=== PATIENT | male | born 1955 | race Caucasian/White ===

== ENCOUNTER 2020-09-15 01:05 | Outpatient (CLI) | payer OTHER, SELFPAY ==
[2020-09-15 19:22] LABS: SARS-CoV-2 RNA PCR Negative
== END 2020-09-15 01:06 | disposition home or self-care (01) ==
LOC: ANHCOVIDDT 01:05
PROVIDERS: Visit Provider Internal Medicine Gastroenterology
DX: Z01.812 Encounter for preprocedural laboratory examination (principal); Z20.822 Contact with and (suspected) exposure to COVID-19
CPT/HCPCS: C9803; U0003; U0005

== ENCOUNTER 2020-09-18 02:38 | Day surgery (SDC) | payer OTHER, SELFPAY ==
[2020-09-10 11:01] VITALS: BMI 25.9
[2020-09-18 09:45] VITALS: BP 113/66; PULSE 75; RESP 18; TEMP 36.9; O2SAT 98
[2020-09-18] MEDS: LACTATED RINGERS 1,000 ML 150 ML IV CONT (10:01)
--- NOTE | 2020-09-18 10:19 | P.PNAN_ITS ---
Anes - Initial Pre Proc Eval Procedure: Operation Date: 09/18/20 10:30 Proposed Procedures p Screening Colonoscopy - Marc Suarez MD Date/Time: 09/18/20 10:19 Surgeon: Marc Suarez MD Pre Op Diagnosis: Neoplasm Screening Patient Data Age: 65 Gender: M Height: 5 ft 10 in Weight: 78.3 kg Last Vital Signs Temp 98.4 F 09/18/20 09:45 Pulse 75 09/18/20 09:45 Resp 18 09/18/20 09:45 BP 113/66 09/18/20 09:45 Pulse Ox 98 09/18/20 09:45 Allergies Allergy/AdvReac Type Severity Reaction Status Date / Time ibuprofen Allergy Unknown Hives Verified 09/18/20 09:44 NSAIDS (Non-Steroidal Allergy Hives Verified 09/18/20 09:44 Anti-Inflamma latex AdvReac Itching Verified 09/18/20 09:44 Home Medications Medication Instructions Recorded Confirmed Type Zn-pyg cntl-uoxuyf-hak palmet [Saw 1 cap PO BID 09/10/20 09/10/20 History [place] Complex] aspirin [Aspir-81] 81 mg PO DAILY 09/10/20 09/10/20 History magnesium glycinate 225 mg PO DAILY 09/10/20 09/10/20 History omega-3 fatty acids-vitamin E 1 cap PO DAILY 09/10/20 09/10/20 History [Fish Oil] vitamin K2 40 mcg PO DAILY 09/10/20 09/10/20 History Patient hx anesthesia problems: none Family hx anesthesia problems: none PMFSH Past Medical History Medical History (Updated 09/18/20 @ 10:18 by Mirza Padron MD) Healthy adult Family History Family History (System 09/17/20 @ 11:57 by Alex Guerra) Father Family history of congestive heart failure, Onset Age: 86 Social History Social History (System 09/17/20 @ 11:57 by Alex Guerra) Smoking status: Never smoker Alcohol intake: current Drinks per week: 3 Substance use type: does not use Living arrangements: with family Spiritual care concerns: No Anes - Eval Final PreProcedure Day of Procedure 09/18/20 10:19 Patient weight: normal Heart: regular rate and rhythm Lungs: clear to auscultation Airway: Mallampati scale class II Neurological: alert and oriented Last oral intake: >/= 8 hours ASA classification: I Emergent: no Anesthetic plan: proceed Anesthesia type and monitoring: general GIVS and standard monitoring Informed Consent: The patient's anesthetic plan and its attendant risks and benefits were discussed with the patient/family/POA. Questions were solicited and answers provided to the satisfaction of the patient/family/POA.
--- NOTE | 2020-09-18 10:35 | PM.HPGS ---
History of Present Illness History of Present Illness Consent: Risks, benefits, and alternatives have been discussed and questions answered. Patient agrees to proceed with procedure. Chief complaint: Neoplasm Screening Narrative: Alec Jara is a 65 year old male with colon polyps, last one about 4 years ago. Review of Systems Constitutional: Constitutional: Denies headache(s) and Denies weakness Eyes: Eyes: Denies blurry vision ENT: Reports Normal hearing present, Denies headache(s) and Denies neck pain Cardiovascular: Cardiovascular: Denies chest pain and Denies dyspnea Respiratory: Respiratory: Denies dyspnea Gastrointestinal: Gastrointestinal: Reports no additional gastrointestinal complaints Genitourinary: Genitourinary: Denies dysuria Musculoskeletal: Musculoskeletal: Denies neck pain Integumentary/Breasts: Skin/Breast: Denies dry skin Neurologic: Reports Normal hearing present, Denies headache(s) and Denies weakness Psychiatric: Psychiatric: Denies anxiety Endocrine: Endocrine: Denies change in body appearance Hematologic/Lymphatic: Hematologic/Lymphatic: Denies easy bleeding Allergic/Immunologic: Allergic/Immunologic: Denies urticaria PMFSH Past Medical History Medical History (Updated 09/18/20 @ 10:35 by Marc Suarez MD) Adenomatous colon polyp Healthy adult Family History Family History (System 09/17/20 @ 11:57 by Alex Guerra) Father Family history of congestive heart failure, Onset Age: 86 Social History Social History (System 09/17/20 @ 11:57 by Alex Guerra) Smoking status: Never smoker Alcohol intake: current Drinks per week: 3 Substance use type: does not use Living arrangements: with family Spiritual care concerns: No Meds Home Medications and Allergies Home Medications Medication Instructions Recorded Confirmed Type Zn-pyg loaw-fzhahf-omg palmet [Saw 1 cap PO BID 09/10/20 09/10/20 History [place] Complex] aspirin [Aspir-81] 81 mg PO DAILY 09/10/20 09/10/20 History magnesium glycinate 225 mg PO DAILY 09/10/20 09/10/20 History omega-3 fatty acids-vitamin E 1 cap PO DAILY 09/10/20 09/10/20 History [Fish Oil] vitamin K2 40 mcg PO DAILY 09/10/20 09/10/20 History Allergies Allergy/AdvReac Type Severity Reaction Status Date / Time ibuprofen Allergy Unknown Hives Verified 09/18/20 09:44 NSAIDS (Non-Steroidal Allergy Hives Verified 09/18/20 09:44 Anti-Inflamma latex AdvReac Itching Verified 09/18/20 09:44 Vital Signs Vital Signs - 24 hr 09/18/20 09:45 Temperature 98.4 F Pulse Rate 75 Respiratory Rate 18 Blood Pressure 113/66 Pulse Oximetry 98 Exam Const: General: comfortable and no acute distress HENMT: General nose exam: Normal nares present Eyes: General: appearance normal, both eyes and all related structures Neck: Neck: no JVD Resp: Auscultation: clear to auscultation bilaterally Cardio: Rate: regular rate Rhythm: regular rhythm GI: Inspection: non-distended GI Palp: Yes Soft to palpation Skin: General skin exam: normal color Neuro: General: gait normal Speech: normal speech Extrem: General: normal to inspection Psych: Mental Status: mental status grossly normal Assessment and Plan Assessment and plan (1) Adenomatous colon polyp: Code(s): D12.6 - Benign neoplasm of colon, unspecified Status: Acute Assessment and Plan: will proceed with colonoscopy
[2020-09-18 11:00] VITALS: BP 114/59; PULSE 82; RESP 20; O2SAT 97
[2020-09-18 11:10] VITALS: BP 126/77; PULSE 74; RESP 17; O2SAT 98
[2020-09-18 11:20] VITALS: BP 120/82; PULSE 66; RESP 18; O2SAT 99
== END 2020-09-18 11:33 | disposition home or self-care (01) ==
PROVIDERS: PCP Internal Medicine; Visit Provider Internal Medicine Gastroenterology
PROC: 0DJD8ZZ Inspection of Lower Intestinal Tract, Via Natural or Artificial Opening Endoscopic (ICD-10-PCS; CPT 45378; principal; 2020-09-18 10:30)
DX: Z12.11 Encounter for screening for malignant neoplasm of colon (principal); D12.0 Benign neoplasm of cecum; D12.3 Benign neoplasm of transverse colon; K63.5 Polyp of colon; K57.30 Diverticulosis of large intestine without perforation or abscess without bleeding; K64.8 Other hemorrhoids; Z79.82 Long term (current) use of aspirin
CPT/HCPCS: 45380; 88305; C9803; J2704; J7120; U0003; U0005

== ENCOUNTER → 2021-04-09 07:15 | Outpatient (CLI) | payer OTHER, SELFPAY ==
[2021-04-10 01:52] LABS: SARS-CoV-2 RNA PCR Negative
== END ==
PROVIDERS: PCP Internal Medicine; Visit Provider Surgery
DX: Z20.822 Contact with and (suspected) exposure to COVID-19 (principal)
CPT/HCPCS: C9803; U0003; U0005

== ENCOUNTER → 2021-04-23 02:32 | Outpatient (CLI) | payer OTHER, SELFPAY ==
[2021-04-23 20:12] LABS: SARS-CoV-2 RNA PCR Negative
== END ==
PROVIDERS: PCP Internal Medicine; Visit Provider Surgery
DX: R68.89 Other general symptoms and signs (principal); Z20.822 Contact with and (suspected) exposure to COVID-19
CPT/HCPCS: C9803; U0003; U0005

== ENCOUNTER 2022-02-15 14:36 | Outpatient (CLI) | payer OTHER, SELFPAY ==
--- NOTE | 2022-02-15 14:55 | ECG_ITS ---
Measurements Intervals Thomas Rate: 66 P: 54 [place]: 197 QRS: 22 QRSD: 91 T: 32 QT: 398 QTc: 418 Interpretive Statements SINUS RHYTHM NORMAL ECG NO PREVIOUS ECG AVAILABLE FOR COMPARISON Electronically Signed On 02-15-2022 15:04:07 CDT by Tio Sahu M.D.
== END 2022-02-15 14:37 | disposition home or self-care (01) ==
PROVIDERS: PCP Internal Medicine; Visit Provider Internal Medicine
DX: Z00.00 Encounter for general adult medical examination without abnormal findings (principal)
CPT/HCPCS: 93005

== ENCOUNTER 2022-10-14 05:55 | Day surgery (SDC) | payer MEDICARE, SELFPAY ==
[2022-09-30 09:19] VITALS: BMI 25.0
[2022-10-14] VITALS (8 sets, daily range): BP systolic 100–116; BP diastolic 70–82; PULSE 54–71; RESP 10–18; TEMP 36.2–36.9; O2SAT 99–100; BMI 24.3
--- NOTE | ~2022-10-14 | XR_ITS ---
EXAMINATION: XR surgery orthopedic DATE: 10/14/2022 08:46 INDICATION: Left foot bunion. TECHNIQUE: 3 intraoperative fluoroscopic views of left foot were obtained. I was not present. Fluoros copy exposure time was 0.1 minutes. COMPARISON: None. FINDINGS: There are changes of arthrodesis procedure of first metatarsophalangeal joint with dorsal p late and screws. IMPRESSION: 1. Arthrodesis of first metatarsophalangeal joint. Reviewed, dictated and finalized at location A. PRESS OPERATOR HELPER
--- NOTE | 2022-10-14 06:51 | P.PNAN_ITS ---
Anes - Initial Pre Proc Eval Procedure: Operation Date: 10/14/22 07:30 Proposed Procedures p Arthrodesis First Metatarsophalangeal Joint Left Foot - Andrew Warren JR, MD Date/Time: 10/14/22 06:51 Surgeon: Andrew Warren JR, MD Pre Op Diagnosis: Arthritic Bunion Left Foot Patient Data Age: 67 Gender: M Height: 1.75 m Weight: 74.9 kg Last Vital Signs Temp 36.9 C 10/14/22 06:32 Pulse 71 10/14/22 06:32 Resp 16 10/14/22 06:32 BP 115/82 10/14/22 06:32 Pulse Ox 100 10/14/22 06:32 O2 Del Method Room Air 10/14/22 06:32 Allergies Allergy/AdvReac Type Severity Reaction Status Date / Time ibuprofen Allergy Unknown Hives Verified 10/14/22 06:27 NSAIDS (Non-Steroidal Allergy Hives Verified 10/14/22 06:27 Anti-Inflamma latex AdvReac Itching Verified 10/14/22 06:27 Home Medications Medication Instructions Recorded Confirmed Type Zn-pyg jtbg-bdfuwh-rag palmet 1 cap PO BID 09/10/20 10/14/22 History capsule omega-3 fatty acids-vitamin E 1 cap PO DAILY 09/10/20 10/14/22 History 1,000 mg capsule ascorbate calcium (vitamin C) 500 500 mg PO DAILY 05/21/21 10/14/22 History mg tablet cholecalciferol (vitamin D3) 50 50 mcg PO DAILY #1 cap 05/21/21 10/14/22 Rx mcg (2,000 unit) capsule aluminum-magnesium hydroxide 600 1 tablet PO DAILY 03/17/22 10/14/22 History mg-300 mg chewable tablet vitamin K2 40 mcg tablet 40 mcg PO DAILY 03/17/22 10/14/22 History Patient hx anesthesia problems: none Family hx anesthesia problems: none Results Review: All pre-operative results and documents have been reviewed as part of the pre- operative evaluation. COUNT INCLUDES THE [facility] Past Medical History Medical History Adenomatous colon polyp Healthy adult Family History Family History Father Family history of congestive heart failure, Onset Age: 86 Social History Social History Smoking status: Never smoker Second hand tobacco smoke exposure: No Alcohol intake: current Drinks per week: 1 Alcohol use details: socially Substance use: never Substance use type: does not use Living arrangements: with family Spiritual care concerns: No Anes - Eval Final PreProcedure Day of Procedure 10/14/22 06:51 Patient weight: normal Heart: regular rate and rhythm Lungs: clear to auscultation Airway: Mallampati scale class II Neurological: alert and oriented Last oral intake: >/= 8 hours ASA classification: I Emergent: no Anesthetic plan: proceed Anesthesia type and monitoring: general LMA and standard monitoring Results Review: All pre-operative results and documents have been reviewed as part of the pre- operative evaluation. Informed Consent: The patient's anesthetic plan and its attendant risks and benefits were discussed with the patient/family/POA. Questions were solicited and answers provided to the satisfaction of the patient/family/POA.
[2022-10-14] MEDS: LACTATED RINGERS 1,000 ML 30 ML IV CONT ×2 (07:02→09:13)
--- NOTE | 2022-10-14 07:09 | W.PM.PROC2 ---
Procedure Note - Detailed Date of Procedure 10/14/22 Pre-op Diagnosis Arthritic Bunion Left Foot Post-op Diagnosis Same Procedure Performed Arthrodesis of the first metatarsal phalangeal joint left foot Surgeon Andrew Warren JR, ZENY Anesthesia General and Regional Indications Painful left forefoot Findings Significant joint degeneration to the head of the first metatarsal phalangeal joint left foot Description of Procedure PROCEDURE IN DETAIL: Under mild sedation, the patient was brought into the operating room, placed on the operating table in supine position. A pneumatic ankle tourniquet was placed about the patient's ipsilateral ankle. Following general anesthesia and a popliteal fossa block performed by Anesthesiology. The foot was then scrubbed, prepped, and draped in the usual aseptic manner. An Esmarch bandage was then used to exsanguinate the patient's foot and the pneumatic ankle tourniquet was then inflated. Surgery began in the following manner: Attention was directed to the dorsal aspect of the 1st metatarsophalangeal joint where there was a large subcutaneous prominence noted along the dorsomedial aspect of the joint. The incision was made starting along the central shaft of the 1st metatarsal and extending just proximal to the interphalangeal joint of the hallux. The incision was continued deep down through the subcutaneous tissues using sharp and blunt dissection. All bleeders were cauterized as necessary. At this point, the dissection was continued down to the level of the periosteum and capsular structures overlying the 1st metatarsophalangeal joint. A full length periosteum and capsular incision was made just medial to the extensor hallucis longus tendon. The periosteum and capsular structures were freed from the base of the proximal phalanx as well as the distal 1st metatarsal. At this point, the 1st metatarsophalangeal joint was identified. There was almost complete loss of articular cartilage to the head of the 1st metatarsal as well as the base of the proximal phalanx. There was significant broadening and hypertrophy of the 1st metatarsophalangeal joint. Utilizing a sagittal bone saw, the hypertrophied 1st metatarsal was resected dorsally, medially, and laterally. A power bur was used to make sure that there were no rough edges and also to further debride the hypertrophic 1st metatarsal. Next, a rongeur was used to resect all hypertrophic base of the proximal phalanx. At this point, the reamer system for the [employer] CrossCHECK system was used to denude the degenerative cartilage from the head of the 1st metatarsal as well as the base of the proximal phalanx. The cartilage and subchondral bone were fully debrided utilizing the reamer system until healthy bleeding bone was noted. Next, a 2-0 drill bit was used to further fenestrate the head of the 1st metatarsal as well as the base of the proximal phalanx in order to allow fusion across the 1st metatarsophalangeal joint. Next, a 0.045 inch K-wire was driven from the medial aspect of the base of the proximal phalanx into the head of the 1st metatarsal in order to serve as temporary fixation. A large steel plate was used to make sure that the hallux was in a rectus position both in the sagittal plane as well as the frontal and transverse plane. Excellent position of the hallux was noted. Next, a CrossCHECK plate was placed atop the 1st metatarsophalangeal joint held in position with Dalton wires. Utilizing standard principles and techniques, the 2 distal drill holes were drilled and two 3.5 mm fully-threaded locking screws were driven from dorsal to plantar holding the distal aspect of the plate intact. At this point, a 3.5mm lag screw was driven from dorsal distal to proximal plantar across the 1st metatarsophalangeal joint through the plate system with excellent compression noted after careful removal of the olive wire and temporary fixation from the
--- NOTE | 2022-10-14 07:09 | WPDHPUPDATE1 ---
History and Physical Update Update Date/Time: 10/14/22 07:09 History and Physical has been reviewed, including an updated exam of the patient. There are NO changes in the patient's condition. Risks, benefits, and alternatives have been discussed and questions answered. Patient agrees to proceed with procedure.
--- NOTE | 2022-10-14 07:36 | WPDANESPNB ---
Anes - Peripheral Nerve Block Date/Time: 10/14/22 07:36 I have discussed with the patient/family/POA the placement of a peripheral nerve block for post-operative pain management, including associated risks, benefits, complications, and side effects. Alternative methods of post-operative analgesia were detailed. Questions were solicited and answers provided to the satisfaction of the patient/family/POA. Time-Out: A pre-procedural Time-Out was completed immediately before starting the procedure and confirmed: Patient Identification, Site, Procedure, Patient Position and the Availability of Requisite Equipment. Clinical Indications: Acute post-operative pain management requested by the operative surgeon. Nerve Block Insertion Note Anes-nerve block: posterior fossa sciatic left and other (L saphenous field block ) Patient position: supine (for adductor canal) and other (right lateral for popliteal) Skin prep: chlorhexidine Needle: 22 gauge, stimulating, insulated echogenic needle. Needle length: 80 mm Technique: nerve stimulation lost at (mA) (for popliteal lost at 0.3) Injectate: bupivacaine 0.5% with epi 5 mcg/ml (20 mL for popliteal, 10 mL for saphenous field block (no epi)) Observations: tolerated well Complications: none Procedure start time:: 719 Procedure end time:: 729
[2022-10-14] MEDS: ceFAZolin SODIUM 2 GM/20 ML SW SYRINGE IV PUSH (07:40)
--- NOTE | 2022-10-14 09:20 | SUR.PHASEI ---
PT AWAKE AND ALERT. TALKATIVE. DENIES PAIN OR NAUSEA. LT FOOT PINK AND WARM. GROSS MOTOR MOVEMENT TO LT LEG ONLY. UNABLE TO MOVE TOES. STATES NUMBNESS
--- NOTE | 2022-10-14 09:23 | SUR.PHASEI ---
0910; DR HOWE IN PACU SPEAKING WITH PT.
--- NOTE | 2022-10-14 11:30 | WPDANESPN ---
Anes - Prog Note Post-Op Date/Time: 10/14/22 11:30 Cardiovascular status: normal Respiratory status: normal Airway patency: baseline Mental status: baseline Post-Op hydration status: normal Vital Signs: Last Vital Signs Temp 36.2 C L 10/14/22 08:55 Pulse 65 10/14/22 10:34 Resp 16 10/14/22 10:34 BP 113/71 10/14/22 10:34 Pulse Ox 99 10/14/22 10:34 O2 Del Method Room Air 10/14/22 10:34 O2 Flow Rate 6 10/14/22 09:10 Pain Score (VAS): 0 I/O: Intake & Output 10/13/22 10/14/22 10/14/22 23:59 07:59 15:59 Intake Total 250 Balance 250 Post-procedural complaints: none Patient Feedback: Patient satisfied with anesthetic care. Other Findings: Patient vital signs back to baseline. Patient denies nausea and vomiting. Patient's pain under control. Patient OK for discharge.
== END 2022-10-14 10:43 | disposition home or self-care (01) ==
PROVIDERS: PCP Internal Medicine; Visit Provider Podiatrist Foot & Ankle Surgery
PROC: (CPT 28750; principal; 2022-10-14 07:30)
DX: M20.12 Hallux valgus (acquired), left foot (principal)
CPT/HCPCS: 28750; 99199

== ENCOUNTER 2023-05-17 09:47 | Outpatient (CLI) | payer MEDICARE, SELFPAY ==
--- NOTE | ~2023-05-17 | DEXA_ITS ---
Bone Density Report Name: ALBAN DUPONT Age: 67 Sex: Male Ethnicity: White Date of : 1955 Indication: other specified personal risk factors; high risk for osteoporosis Referring Provider: ARACELI WRIGHT Study: Bone densitometry was performed. Exam Date: May 17, 2023 Accession number: [id number] Bone Density: Region BMD T-score Z-score Classification AP Spine(L1-L4) 0.909 -1.7 -0.9 Osteopenia Femoral Neck (Left) 0.626 -2.2 -1.2 Osteopenia Total Hip (Left) 0.790 -1.6 -1.1 Osteopenia Femoral Neck (Right) 0.629 -2.2 -1.2 Osteopenia Total Hip (Right) 0.781 -1.7 -1.1 Osteopenia Total Hip Mean 0.786 -1.7 -1.1 Osteopenia World Health Organization criteria for BMD impression classify patients as: Normal (T-score at or above -1.0), Osteopenia (T-score between -1.0 and -2.5), or Osteoporosis (T-score at or below -2.5). 10-year Fracture Risk(1): Major Osteoporotic Fracture 8.1% Hip Fracture 2.0% Reported Risk Factors: [place] (), Neck BMD=0.626, BMI=23.8 (1) FRAX(R) Version 3.08. Fracture probability calculated for an untreated patient. Fracture probability may be lower if the patient has received treatment. Clinical Information Provided by Patient: Has used the following medications: Vitamin D Patient maximum height was 69 Drinks caffeinated beverages Impression: The patient has low bone mass, based on the Left Femoral Neck T-score. The patient has an estimated ten-year risk of hip fracture of 2% and an estimated ten-year risk of major fracture of 8.1%, based on the WHO FRAX algorithm. Discussion: BONE DENSITY IS LOW AT ONE OR MORE SKELETAL SITES. This patient's lowest T-score is low at one or more skeletal sites. It meets the World Health Organization's (WHO) criteria for ?low bone mass? (T-score between -1.0 and -2.5). The patient's 10-year risk of fracture as calculated by FRAX is less than the threshold where pharmacological therapy is recommended by the National Osteoporosis Foundation (NOF). However, all treatment decisions require clinical judgment and consideration of individual patient factors, including patient preferences, comorbidities, previous drug use, risk factors not captured in the FRAX model (e.g., frailty, falls, vitamin D deficiency, increased bone turnover, interval significant decline in bone density) and possible under or overestimation of fracture risk by FRAX. The patient should follow a healthful lifestyle (good nutrition with adequate calcium and vitamin D, and appropriate weight-bearing exercise). Follow-Up: Consider repeating this study in 2 to 3 years to reassess this patient's status, or sooner if there is some new clinical indication. Reported by: FRAN on 05/17/2023 10:06:00 AM. Revie
== END 2023-05-17 09:48 | disposition home or self-care (01) ==
LOC: ANHIMG 09:49
PROVIDERS: PCP Family Medicine; Visit Provider Family Medicine
DX: Z91.89 Other specified personal risk factors, not elsewhere classified (principal); M85.88 Other specified disorders of bone density and structure, other site; M85.852 Other specified disorders of bone density and structure, left thigh; M85.851 Other specified disorders of bone density and structure, right thigh
CPT/HCPCS: 77080

== ENCOUNTER 2023-05-19 07:57 | Outpatient (CLI) | payer MEDICARE, SELFPAY | END 2023-05-19 07:58 | disposition home or self-care (01) | LOC: ANHAUDASC 07:59 | PROVIDERS: PCP Family Medicine; Visit Provider Family Medicine | DX: H90.3 Sensorineural hearing loss, bilateral (principal) | CPT/HCPCS: 92557; 92567 ==